=== PATIENT | female | born 1945 | race Caucasian/White ===

== ENCOUNTER 2022-09-19 08:26 | Emergency (ER) | payer BC, OTHER ==
[~2022-09-19] VITALS: Ht 170.2 cm; Wt 102.5 kg
== END 2022-09-19 10:31 | disposition home or self-care (01) ==
LOC: ER 08:26
DX: S59.811A Other specified injuries right forearm, initial encounter (principal); W18.39XA Other fall on same level, initial encounter; Y93.89 Activity, other specified; Y92.59 Other trade areas as the place of occurrence of the external cause; Z91.040 Latex allergy status; Z88.2 Allergy status to sulfonamides; M81.8 Other osteoporosis without current pathological fracture